=== PATIENT | female | born 1955 | race Caucasian/White ===

== ENCOUNTER 2017-03-06 12:10 | Inpatient (IN) ==
--- NOTE | 2017-03-05 22:16 | Discharge Summary ---
<MendezsantinoMitali laneYenifer L - Last Filed: 03/05/17 22:10> Date of Encounter: 03/05/17 - Discharge Diagnosis (1) Arthritis of knee, right Priority: Primary Status: Acute (2) HTN (hypertension) Priority: Secondary Status: Chronic Qualifiers: Hypertension type: essential hypertension Qualified Code(s): I10 - Essential (primary) hypertension (3) Latex allergy Priority: Secondary Status: Chronic - Discharge Medications Home Medications: Albuterol Sulfate [Proair Respiclick] 2 puff IH PRN PRN 08/18/16 [History] Budesonide/Formoterol 160/4.5 [Symbicort 160/4.5] 2 puff IH BIDR 08/18/16 [ History] Hydrochlorothiazide 25 mg PO DAILY 08/18/16 [History] Pantoprazole Sodium [Protonix] 40 mg PO DAILY 08/18/16 [History] Duloxetine [Cymbalta] 30 mg PO DAILY 10/21/16 [History] Enoxaparin [Lovenox] 30 mg SQ Q12HR #20 syr 03/05/17 [Rx] OxyCODONE Immed Rel [Roxicodone 5 MG] 5 - 10 mg PO Q6HR PRN #40 tablet 03/05/17 [Rx] Buspirone HCl [Buspar] 5 mg PO TID PRN 03/06/17 [History] Ipratropium/Albuterol Neb [Duoneb] 3 ml IH Q6H PRN 03/06/17 [History] Linaclotide [Linzess] 145 mcg PO DAILY PRN 03/06/17 [History] Sucralfate [Carafate] 1 gm PO BID 03/06/17 [History] Allergies/Adverse Reactions: Allergies acetaminophen Adverse Reaction (Verified 10/21/16 07:15) Anaphylaxis aspirin [ASA] Adverse Reaction (Verified 10/21/16 07:15) Hives azithromycin [From Zithromax] Adverse Reaction (Verified 10/21/16 07:15) Rash codeine Adverse Reaction (Verified 10/21/16 07:15) Vomiting egg Adverse Reaction (Verified 10/21/16 07:15) Hives hydrocodone Adverse Reaction (Verified 10/21/16 07:15) Nausea latex Adverse Reaction (Verified 03/06/17 13:27) SWELLING TESTED NEGATIVE levofloxacin Adverse Reaction (Verified 10/21/16 07:15) Anaphylaxis Penicillins [PCN] Adverse Reaction (Verified 10/21/16 07:15) Fainting Sulfa (Sulfonamide Antibiotics) Adverse Reaction (Verified 10/21/16 07:15) Rash Primary care physician: Erik Rosales CNP - Patient Status Disposition: Home, Self-Care Condition: Good - Discharge Instructions Follow Up With: Rafa Valverde MD [Partnered Physician] - 04/04/17 10:20 am Yenifer Hill PAC [Physician Computer Applications Engineer] - 03/16/17 11:45 am Erik Rosales CNP [Primary Care Provider] - - Hospital Course Hospital course: Ms. Paul is a 61 year old female - Time Spent with Patient Total time spent providing and/or coordinating discharge services: <Rafa Valverde - Last Filed: 03/09/17 07:59> Date of Encounter: 03/09/17 Time of Encounter: 07:58 - Discharge Diagnosis (1) Arthritis of knee, right Priority: Primary Status: Acute (2) HTN (hypertension) Priority: Secondary Status: Chronic Qualifiers: Hypertension type: essential hypertension Qualified Code(s): I10 - Essential (primary) hypertension (3) Latex allergy Priority: Secondary Status: Chronic (4) Vasovagal episode Priority: Primary Status: Acute Primary care physician: Erik Rosales CNP - Patient Status Functional capacity at discharge: uses cane/walker Overall status at discharge: patient is progressing back to baseline - Hospital Course Hospital course: Ms. Paul is a 61 year old female The patient had an uneventful postoperative course except for a vasovagal episode evening postop day 2. She responded with appropriate treatment.. They received antibiotics and physical therapy and were discharged in stable condition. There will follow-up in the office in 2 weeks. Aspirin DVT prophylaxis - Time Spent with Patient Total time spent providing and/or coordinating discharge services:
--- NOTE | 2017-03-06 12:26 | History & Physical Report ---
Date of Encounter: 03/06/17 Time of Encounter: 12:25 24 Hour HP Update - Instructions Instructions: If the History and Physical is less than 30 days old and was completed prior to A.M. admission and or procedure and has NOT been updated on calendar day of procedure please complete this update prior to performing procedure. - Update Patient reports changes in Medical Condition: No Changes in examination, assessment, or condition: No Changes in Medication: No Preop tests/diagnostics Reviewed: Yes Surgery Remains Indicated: Yes Consent for Planned Operative Procedure(s) Verified: Yes - Pre-Operative Checklist Preoperative Checklist Indicated: No Prophylactic Antibiotic Ordered: Yes Is VTE Prophylaxis Indicated?: Yes
[2017-03-06] MEDS ORDERED: Clindamycin 900 MG/50 ML 900 MG/50 ML IV.SOLN IVPB ONE (12:41)
[2017-03-06] MEDS ORDERED: Albuterol 2.5 MG/3 ML NEBULIZER IH ONE (12:41)
[2017-03-06] MEDS ORDERED: Ringers Solution, Lactated 1,000 ML IVC SCH ×2 (12:45→17:12)
[2017-03-06] MEDS ORDERED: Famotidine 20 MG/2 ML VIAL IVP ONE (13:30)
[2017-03-06] MEDS ORDERED: Gabapentin 300 MG CAPSULE PO ONE (13:31)
--- NOTE | 2017-03-06 13:33 | Anesthesia Evaluation PreOp ---
Date of Encounter: 03/06/17 Time of Encounter: 13:30 - Past History Planned Operation: Rt TKA Cardiac History: HTN Pulmonary History: Asthma KNOT CUTTER History: Other (Fibromyalgia) Other Medical History: GERD, Other (IBS, Lupus) Anesthesia History: No Prior Anesthetic Complications : No Alcohol Use: none Drug use: none Medications and Allergies Albuterol Sulfate [Proair Respiclick] 90 mcg IH PRN PRN 08/18/16 [History] Budesonide/Formoterol 160/4.5 [Symbicort 160/4.5] 1 puff IH BIDR 08/18/16 [ History] Gabapentin [Neurontin] 300 mg PO TID #30 capsule 08/18/16 [Rx] Hydrochlorothiazide 25 mg PO DAILY 08/18/16 [History] L.acidoph,Paracasei, B.lactis [Probiotic] 1 each PO DAILY 08/18/16 [History] Pantoprazole Sodium [Protonix] 40 mg PO BID 08/18/16 [History] Ranitidine HCl [Zantac] 150 mg PO BID 08/18/16 [History] Duloxetine [Cymbalta] 30 mg PO Q48H 10/21/16 [History] Enoxaparin [Lovenox] 30 mg SQ Q12HR #20 syr 03/05/17 [Rx] OxyCODONE Immed Rel [Roxicodone 5 MG] 5 - 10 mg PO Q6HR PRN #40 tablet 03/05/17 [Rx] Allergies acetaminophen Adverse Reaction (Verified 10/21/16 07:15) Anaphylaxis aspirin [ASA] Adverse Reaction (Verified 10/21/16 07:15) Hives azithromycin [From Zithromax] Adverse Reaction (Verified 10/21/16 07:15) Rash codeine Adverse Reaction (Verified 10/21/16 07:15) Vomiting egg Adverse Reaction (Verified 10/21/16 07:15) Hives hydrocodone Adverse Reaction (Verified 10/21/16 07:15) Nausea latex Adverse Reaction (Verified 03/06/17 13:27) SWELLING TESTED NEGATIVE levofloxacin Adverse Reaction (Verified 10/21/16 07:15) Anaphylaxis Penicillins [PCN] Adverse Reaction (Verified 10/21/16 07:15) Fainting Sulfa (Sulfonamide Antibiotics) Adverse Reaction (Verified 10/21/16 07:15) Rash - Meds/Allergy Pre-op Review Medications Reviewed: Yes Allergies Reviewed: Yes Beta Blockers on Current Med List: No Anesthesia Results - Labs Laboratory Tests 10/21/16 02/20/17 02/20/17 07:27 11:07 11:07 Hgb 14.0 POC Hgb 13.0 Plt Count 233 Sodium 139 Potassium 3.6 BUN 13 Creatinine 0.94 - Imaging EKG: report reviewed (SR) Anesthesia Exam O2 Sat Height 1.7 m Height 1.7 m Height 1.7 m Weight 78.925 kg Weight 78.925 kg Weight 78.925 kg O2 Sat by Pulse Oximetry 98 O2 Sat by Pulse Oximetry 98 Vital Signs Temp Pulse Resp BP Pulse Ox 98.0 F 76 18 136/70 98 03/06/17 12:31 03/06/17 12:31 03/06/17 12:31 03/06/17 12:31 03/06/17 12:31 Height: 5'7 Weight: 174 lbs NPO (# of Hours): MN Pain Scale: 0 - HEENT Pupil (Motor): Pupils equal, EOMI Mallampati: II Denture Type: Upper: Complete Oral Opening: Less than or equal to 3 - KNOT CUTTER LOC: Oriented KNOT CUTTER Motor: Normal RUE, Normal LUE, Normal RLE, Normal LLE, Normal Face KNOT CUTTER Sensory: Normal: RUE, LUE, LLE, Face, Deficit: RLE (Patellar paresthesia) - Cardiac Rhythm: Regular Murmur: None JVD: No Carotid Bruit: No - Pulmonary Breath Sounds: bilateral Clear Respiratory Effort: Symmetrical Anesthesia Assess/Plan ASA Score: 2 Modified Nini Scale for Level of Consciousness: Cooperative, oriented, and tranquil Anesthetic Plan: General, Regional Monitoring Plan: Standard Monitors Recovery Plan: PACU (Discussed GA and RA, agrees to proceed)
[2017-03-06] MEDS ORDERED: *HR* Rocuronium Bromide 50 MG/5 ML VIAL ONE (13:59)
[2017-03-06] MEDS ORDERED: *HR* FentaNYL (PF) 100 MCG/2 ML VIAL ONE (13:59)
[2017-03-06] MEDS ORDERED: Ondansetron 4 MG/2 ML VIAL ONE (13:59)
[2017-03-06] MEDS ORDERED: Lidocaine -MPF 2% 2 ML VIAL ONE (13:59)
[2017-03-06] MEDS ORDERED: *HR* Propofol 200 MG/20 ML VIAL IVP ONE (14:00)
[2017-03-06] MEDS ORDERED: *HR* Midazolam HCl 2 MG/2 ML VIAL ONE (14:00)
[2017-03-06] MEDS ORDERED: ROPIVACAINE HCL/PF 0.5% 30 ML VIAL ONE (14:20)
--- NOTE | 2017-03-06 14:37 | Anesthesia Procedures ---
Date of Encounter: 03/06/17 Time of Encounter: 14:35 Procedures: Anesthesia - Nerve Block Procedure Date: 03/06/17 Time: 14:35 Allergies/Adv Reactions: acetaminophen Adverse Reaction (Verified 10/21/16 07:15) Anaphylaxis aspirin [ASA] Adverse Reaction (Verified 10/21/16 07:15) Hives azithromycin [From Zithromax] Adverse Reaction (Verified 10/21/16 07:15) Rash codeine Adverse Reaction (Verified 10/21/16 07:15) Vomiting egg Adverse Reaction (Verified 10/21/16 07:15) Hives hydrocodone Adverse Reaction (Verified 10/21/16 07:15) Nausea latex Adverse Reaction (Verified 03/06/17 13:27) SWELLING levofloxacin Adverse Reaction (Verified 10/21/16 07:15) Anaphylaxis Penicillins [PCN] Adverse Reaction (Verified 10/21/16 07:15) Fainting Sulfa (Sulfonamide Antibiotics) Adverse Reaction (Verified 10/21/16 07:15) Rash Pre-op Diagnosis: oa right knee Surgical Procedure: right tka Checklist: Correct Patient Identifier, Correct procedure, History checked Correct side: Right Blood Thinner: No Monitor Applied: EKG, BP, Pulse Oximetry Supplemental Oxygen via Nasal Cannula (L/min): 2 Sedation: Versed (mg): 2 Indication: Post Op Analgesia Pre-op Neuro Deficits: No Block Type: Femoral, Other (iPACK) Catheter placed: No Sterile Technique: Yes Ultrasound used: Yes Anatomy identified: Yes Visual spread of Local: Yes Neuro Stimulation: Yes Nerve Stimulator Range: 0.2 - 0.4 mA Blood on Needle Aspiration: No Smooth Injection of Local: Yes Pain with Injection of Local: No Prep: Chlorhexadine Needle: 22 x 50 mm Stimuplex (femoral), 21 x 100 mm Stimuplex (iPACK) Local: 0.25% Bupivicaine w/Clonidine 20 mcg/cc (iPACK 20 ml), Ropivacaine (0.5% 30cc femoral) Volume (cc): 50 Number of Attempts: 1 Complications: None/effective block
[2017-03-06] MEDS ORDERED: Dexamethasone 4 MG/ML VIAL ONE (15:04)
[2017-03-06] MEDS ORDERED: Albuterol 2.5 MG/3 ML NEBULIZER IH PRN (15:08)
[2017-03-06] MEDS ORDERED: *HR* Promethazine 25 MG/ML VIAL IVP PRN (15:08)
[2017-03-06] MEDS ORDERED: *HR* HYDROmorphone (PF) 1 MG/ML SYRINGE IVP PRN (15:08)
[2017-03-06] MEDS ORDERED: EPHEDrine 50 MG/ML VIAL ONE (15:19)
[2017-03-06 16:55] LABS: Hematocrit 37.6 % (35.3-44.9); Hemoglobin 12.7 g/dL (11.5-15.4)
--- NOTE | 2017-03-06 17:08 | Anesthesia Evaluation Post Op ---
Date of Encounter: 03/06/17 Time of Encounter: 17:10 - Vital Signs Vital Signs: Vital Signs/O2 Sat/Glucose, Most Current Temp Pulse Resp BP Pulse Ox 03/06/17 16:58 97.8 F 91 18 133/64 97 03/06/17 16:48 97.6 F 92 16 124/84 98 03/06/17 16:38 97 16 137/79 97 03/06/17 16:28 107 12 125/86 99 03/06/17 16:18 97.0 F L 84 12 125/64 97 03/06/17 14:16 88 138/87 100 - Lungs Lungs: Clear Ascult./Percussion - Airway Airway: Non-obstructed - Cardiovascular Regular Rate - Mental Status Mental Status: Alert & Oriented, Answers Appropriately - Pain Pain Scale: 0 - Nausea Vomiting Nausea Vomiting: Not Present - Hydration Hydration: Ice chips - Discharge PostOp Status: Transfer Patient to floor
--- NOTE | 2017-03-06 17:08 | Anesthesia Evaluation Post Op ---
Date of Encounter: 03/06/17 Time of Encounter: 17:05 - Vital Signs Vital Signs: Vital Signs/O2 Sat/Glucose, Most Current Temp Pulse Resp BP Pulse Ox 03/06/17 16:58 97.8 F 91 18 133/64 97 03/06/17 16:48 97.6 F 92 16 124/84 98 03/06/17 16:38 97 16 137/79 97 03/06/17 16:28 107 12 125/86 99 03/06/17 16:18 97.0 F L 84 12 125/64 97 03/06/17 14:16 88 138/87 100 - Lungs Lungs: Clear Ascult./Percussion - Airway Airway: Non-obstructed - Cardiovascular Regular Rate - Mental Status Mental Status: Alert & Oriented, Answers Appropriately - Pain Pain Scale: 0 - Nausea Vomiting Nausea Vomiting: Not Present - Hydration Hydration: Ice chips - Discharge PostOp Status: Transfer Patient to floor
[2017-03-06] MEDS ORDERED: Temazepam 15 MG CAPSULE PO PRN (17:12)
[2017-03-06] MEDS ORDERED: Ondansetron 4 MG/2 ML VIAL IVP PRN (17:12)
[2017-03-06] MEDS ORDERED: Ipratropium/Albuterol Neb 3 ML IH PRN (17:12)
[2017-03-06] MEDS ORDERED: Naloxone 0.4 MG/ML INJ IVP PRN (17:12)
[2017-03-06] MEDS ORDERED: *HR* OxyCODONE Immed Rel 5 MG TABLET PO PRN (17:12)
[2017-03-06] MEDS ORDERED: Acetaminophen 325 MG TABLET PO PRN ×2 (17:12→17:29)
[2017-03-06] MEDS ORDERED: Sennosides 8.6 MG TABLET PO PRN (17:12)
[2017-03-06] MEDS ORDERED: MOM Conc 10 ML UD.LIQ PO PRN (17:12)
[2017-03-06] MEDS ORDERED: (Linaclotide [Linzess] 145 MCG) PO PRN (17:12)
[2017-03-06] MEDS ORDERED: ceFAZolin 2,000 MG in D5% in Water 100 ML IVPB SCH (17:12)
[2017-03-06] MEDS: *HR* Enoxaparin 30 MG/0.3 ML SYRINGE SQ SCH (17:47)
[2017-03-06] MEDS: *HR* HYDROmorphone (PF) 1 MG/ML SYRINGE IVP PRN (17:48)
[2017-03-06] MEDS ORDERED: *HR* Enoxaparin 30 MG/0.3 ML SYRINGE SQ SCH (18:00)
[2017-03-06] MEDS: Budesonide/Formoterol 160/4.5 MDI IH SCH (21:10)
[2017-03-06] MEDS: *HR* OxyCODONE Immed Rel 5 MG TABLET PO PRN (21:41)
[2017-03-06] MEDS: Sucralfate 1 GM TABLET PO SCH (21:41)
[2017-03-06] MEDS: Clindamycin 900 MG/50 ML 900 MG/50 ML IV.SOLN IVPB SCH (23:50)
[2017-03-07] MEDS: *HR* OxyCODONE Immed Rel 5 MG TABLET PO PRN ×4 (05:18→17:56)
[2017-03-07] MEDS: *HR* Enoxaparin 30 MG/0.3 ML SYRINGE SQ SCH ×2 (05:18→17:57)
[2017-03-07 05:36] LABS: Hematocrit 37.4 % (35.3-44.9); Hemoglobin 12.1 g/dL (11.5-15.4)
[2017-03-07 05:51] LABS: BUN/Creatinine Ratio 16 (6-26); Blood Urea Nitrogen 14 mg/dL (7-20); Calcium 8.8 mg/dL (8.6-10.8); Carbon Dioxide 25 mEq/L (19-29); Chloride 102 mEq/L (98-109); Glucose 174 mg/dL (70-99); Osmolality,Calculated 291 (280-300); Potassium 3.5 mEq/L (3.5-4.5); Sodium 138 mEq/L (136-145); eGFR For African Americans > 60 (> 60); eGFR For Non-African Americans > 60 (> 60)
[2017-03-07] MEDS: Clindamycin 900 MG/50 ML 900 MG/50 ML IV.SOLN IVPB SCH (06:25)
--- NOTE | 2017-03-07 06:29 | Orthopedics Progress Note ---
Date of Encounter: 03/07/17 Time of Encounter: 06:29 - Assessment and Plan (1) Arthritis of knee, right Current Visit: Yes Status: Acute (2) HTN (hypertension) Current Visit: Yes Status: Chronic Qualifiers: Hypertension type: essential hypertension Qualified Code(s): I10 - Essential (primary) hypertension (3) Latex allergy Current Visit: Yes Status: Chronic Subjective Interval history: Patient was seen this morning doing well without complaints. Afebrile vital signs stable. Operative extremity: Neurovascularly intact Dressing clean dry and intact Calves nontender Assessment and plan: Continue with postoperative care Hematocrit 37 Objective Vital signs: Vital Signs Temp Pulse Resp BP Pulse Ox 03/07/17 04:33 98.0 F 85 18 103/64 98 03/06/17 23:56 97.8 F 91 17 99/61 97 03/06/17 21:11 16 99 03/06/17 20:30 97.9 F 95 16 120/73 100 03/06/17 19:29 97.7 F 99 14 115/70 100 03/06/17 18:26 89 14 124/75 99 03/06/17 17:56 97.4 F L 98 15 126/76 93 03/06/17 17:15 97.3 F L 85 14 125/78 97 03/06/17 16:58 97.8 F 91 18 133/64 97 03/06/17 16:48 97.6 F 92 16 124/84 98 03/06/17 16:38 97 16 137/79 97 03/06/17 16:28 107 12 125/86 99 03/06/17 16:18 97.0 F L 84 12 125/64 97 03/06/17 14:16 88 138/87 100 03/06/17 12:56 98.0 F 76 18 136/70 98 03/06/17 12:31 98.0 F 76 18 136/70 98 Intake and Output 03/06/17 03/06/17 03/07/17 15:59 23:59 07:59 Intake Total 50 / 50 100 / 100 50 / 50 Output Total 200 / 200 500 / 500 1050 / 1050 Balance -150 / -150 -400 / -400 -1000 / -1000 Intake: IV Fluids 50 / 50 50 / 50 Cleocin 900 MG/50 ML 900 50 / 50 50 / 50 mg In 50 ml @ 50 mls/hr IVPB Q8HR LANNY Rx#: [id number] Oral 100 / 100 Output: Urine 0 / 0 500 / 500 1050 / 1050 Estimated Blood Loss 200 / 200 Other: Meal Dinner Percent of Meal Consumed 5% # Voids 1 Weight 78.925 kg - Labs CBC & BMP: 03/07/17 04:52 03/07/17 04:52 Labs: Abnormal lab results Glucose 174 mg/dL (70-99) H 03/07/17 04:52 - VTE Documentation of Mechanical Device: Venous foot pump, device Consult Discharge Plan - Plan Referrals: Erik Rosales, NATIONAL SALES REPRESENTATIVE [Primary Care Provider] -
[2017-03-07] MEDS ORDERED: *HR* OxyCODONE Immed Rel 5 MG TABLET PO PRN (06:50)
[2017-03-07] MEDS: Sucralfate 1 GM TABLET PO SCH ×2 (07:41→19:55)
[2017-03-07] MEDS: hydroCHLOROthiazide 25 MG TABLET PO SCH (07:52)
[2017-03-07] MEDS ORDERED: Clindamycin 900 MG/50 ML 900 MG/50 ML IV.SOLN IVPB SCH (08:00)
[2017-03-07] MEDS: Budesonide/Formoterol 160/4.5 MDI IH SCH ×2 (11:28→20:55)
--- NOTE | 2017-03-07 11:58 | Orthopedic Operative Note ---
Date of procedure: 03/06/17 Pre-op diagnosis: right knee arthritis Post-op diagnosis: same Procedure: Procedure: right Total knee replacement Estimated blood loss: 200 cc Hardware: Arthrex Femur: 5 Tibia: 3 PS insert: 8 Patella:34 Exam Under anesthesia: full flexion full extension no instability Procedural Notes:grade 3 arthritic change medial compartment, patellofemoral joint Operative procedure: The patient was brought to the operating room and placed on the operating room table. After general anesthesia was administered the operative knee was examined. Findings were noted in the exam under anesthesia. The operative extremity was prepped and draped in sterile surgical fashion. The patient received IV antibiotics prior to skin incision. A standard midline incision was made centered over the patella. The incision was made through the skin and subcutaneous tissue. A medial parapatellar tendon approach was performed. Care was taken to preserve tissue along the medial aspect of the patella. And to protect the patella tendon. The deep MCL was released off the medial tibia. The infra patella fat pad was excised. Knee was brought into flexion. Patient noted to have grade 3 arthritic changes medial compartment and patellofemoral joint. The entry hole was made for the intramedullary femoral guide. The guide was seated in 6 degrees of valgus. Anterior cut was made followed by the distal cut. The ACL the PCL the medial and the lateral menisci were excised. The tibia was subluxed forward. The entry hole was made for the intramedullary tibial guide. Guide was seated to resect 2 mm off the more abnormal side. The knee was brought into flexion the distal femur was sized 5. The femoral guide was seated , the anterior cut was made followed by the posterior condylar cut, followed by the chamfer cuts. The finishing guide was seated the box cut was made and the lug holes were drilled. The tibia was sized 3, the tibial tray was seated and prepared with the large drill followed by the fin cutter. Trial reduction revealed full extension no varus valgus instability with the appropriate 8 PS Babita. The patella was everted and cut was made at the level of the insertion of the quadriceps and patella tendon. The patella was sized 34 the guide was seated and the lug holes are drilled. Trial reduction revealed excellent patella tracking. All trial components were removed all bony surfaces were irrigated. The tibia was cemented first followed by the femur. 8 PS Babita was seated and the knee was brought into full extension. The patella was cemented and held in place with the patellar holding clamp. After the cement had hardened, the knee sat for 2 minutes with a Betadine saline solution. The knee was then irrigated out with 2 L of pulse irrigation. The extensor mechanism was closed with #2 FiberWire suture and #2 PDS suture. The subcutaneous tissue was then irrigated and closed deep with #1 PDS suture superficially with 0 PDS suture and skin was closed with skin keon. The patient was then placed in a sterile dressing and a postoperative brace extubated and transferred to recovery room in stable condition. Anesthesia: GETFavian Surgeon: Rafa Valverde Condition: stable Disposition: PACU
[2017-03-07] MEDS: *HR* HYDROmorphone (PF) 1 MG/ML SYRINGE IVP PRN (19:55)
[2017-03-08] MEDS: *HR* HYDROmorphone (PF) 1 MG/ML SYRINGE IVP PRN ×2 (01:37→06:27)
[2017-03-08] MEDS: *HR* OxyCODONE Immed Rel 5 MG TABLET PO PRN ×4 (05:08→20:54)
[2017-03-08] MEDS: *HR* Enoxaparin 30 MG/0.3 ML SYRINGE SQ SCH ×2 (05:08→16:37)
[2017-03-08 06:07] LABS: Hematocrit 34.1 % (35.3-44.9); Hemoglobin 11.4 g/dL (11.5-15.4)
--- NOTE | 2017-03-08 06:49 | Orthopedics Progress Note ---
Date of Encounter: 03/08/17 Time of Encounter: 06:49 - Assessment and Plan (1) Arthritis of knee, right Current Visit: Yes Status: Acute (2) HTN (hypertension) Current Visit: Yes Status: Chronic Qualifiers: Hypertension type: essential hypertension Qualified Code(s): I10 - Essential (primary) hypertension (3) Latex allergy Current Visit: Yes Status: Chronic Subjective Interval history: Patient was seen this morning doing well without complaints. Afebrile vital signs stable. Operative extremity: Neurovascularly intact Dressing clean dry and intact Calves nontender Assessment and plan: Continue with postoperative care Hematocrit 34 Objective Vital signs: Vital Signs Temp Pulse Resp BP Pulse Ox 03/08/17 04:59 97 160/79 03/08/17 00:48 98.2 F 112 17 105/70 96 03/07/17 20:57 18 95 03/07/17 19:28 98.6 F 89 16 147/86 98 03/07/17 14:00 97.6 F 73 18 140/71 99 03/07/17 11:28 16 99 03/07/17 11:03 69 18 119/70 99 03/07/17 10:42 98.2 F 69 18 119/70 99 Intake and Output 03/07/17 03/07/17 03/08/17 15:59 23:59 07:59 Intake Total 2530 / 2530 200 / 200 Output Total 500 / 500 1500 / 1500 Balance 2029 / 2029 200 / 200 -1500 / -1500 Intake: IV Fluids 2049 / 2049 Lactated Ringers 1,000 ML 1000 / 1000 @ 75 mls/hr IVC .[id number] LANNY Rx#:[id number] Cleocin 900 MG/50 ML 900 50 / 50 mg In 50 ml @ 50 mls/hr IVPB Q8H LANNY Rx#: [id number] Oral 480 / 480 200 / 200 Output: Urine 500 / 500 1500 / 1500 Other: Meal Lunch Dinner Percent of Meal Consumed 50% 50% - Labs CBC & BMP: 03/08/17 05:49 03/07/17 04:52 Labs: Abnormal lab results Hgb 11.4 g/dL (11.5-15.4) L 03/08/17 05:49 Hct 34.1 % (35.3-44.9) L 03/08/17 05:49 Glucose 174 mg/dL (70-99) H 03/07/17 04:52 - VTE Documentation of Mechanical Device: Venous foot pump, device Consult Discharge Plan - Plan Referrals: Rafa Valverde MD [Partnered Physician] - 04/04/17 10:20 am Yenifer Hill PAC [Physician Rug Designer] - 03/16/17 11:45 am Erik Rosales CNP [Primary Care Provider] -
[2017-03-08 06:53] LABS: BUN/Creatinine Ratio 15 (6-26); Blood Urea Nitrogen 13 mg/dL (7-20); Calcium 8.7 mg/dL (8.6-10.8); Carbon Dioxide 26 mEq/L (19-29); Chloride 102 mEq/L (98-109); Glucose 130 mg/dL (70-99); Osmolality,Calculated 286 (280-300); Potassium 3.7 mEq/L (3.5-4.5); Sodium 137 mEq/L (136-145); eGFR For African Americans > 60 (> 60); eGFR For Non-African Americans > 60 (> 60)
[2017-03-08] MEDS: Sucralfate 1 GM TABLET PO SCH ×2 (08:00→20:53)
[2017-03-08] MEDS: Budesonide/Formoterol 160/4.5 MDI IH SCH ×2 (08:15→20:23)
[2017-03-08] MEDS: hydroCHLOROthiazide 25 MG TABLET PO SCH (09:12)
[2017-03-08] MEDS ORDERED: 0.9 % Sodium Chloride 1,000 ML ONE (22:52)
[2017-03-08] MEDS ORDERED: Metoclopramide 10 MG/2 ML VIAL IVP ONE (22:55)
[2017-03-08] MEDS ORDERED: 0.9 % Sodium Chloride 500 ML IVC ONE (23:02)
--- NOTE | 2017-03-08 23:10 | Event Note ---
Date of Encounter: 03/08/17 Time of Encounter: 22:45 RAPID RESPONSE DX=Acute vaso-vagal syncope/near syncope AMS; acute tox/metab encephalopathy- delirium Hypotension Postoperative right total knee arthroplasty Condition serious--->Unstable Prognosis guarded Bedrest Orthostatic vital signs Restrict/limit freq+amt narcotic analgesia and sedative PT+OT to assist in mobilization goals TX=IV NS O2 supplementation Strict I&Os;morales Telemetry;pulse oximetry+hemodynamic monitor Metabolic and acid-base deficits correction. Replete fluid and electrolyte deficits. Labs:CBC, CMP, TROPONIN, UA, MAG, VBG, PHOS, ION CALCIUM PROLACTIN, CPK, LACTATE, UDS, AMMONIA, TSH, CORTISOL Studies: EKG, CXR, CT head Plan of care discussed. All questions addressed. Orders written. Vital Signs Temp Pulse Resp BP Pulse Ox 03/08/17 22:40 12 98 03/08/17 20:23 14 99 03/08/17 20:00 99 03/08/17 19:54 98.7 F 90 16 164/82 99 03/08/17 16:10 98.2 F 80 16 157/81 98 03/08/17 12:18 98.5 F 79 16 159/77 96 03/08/17 08:15 16 95 03/08/17 06:49 98.3 F 97 16 162/78 95 03/08/17 04:59 97 160/79 03/08/17 00:48 98.2 F 112 17 105/70 96 Intake and Output 03/08/17 03/08/17 03/08/17 07:59 15:59 23:59 Output Total 1500 / 1500 1100 / 1100 Balance -1500 / -1500 -1100 / -1100 Output: Urine 1500 / 1500 1100 / 1100 Other: Meal Breakfast Percent of Meal Consumed 50% Short CBC 03/08/17 Range/Units 05:49 Hgb 11.4 L (11.5-15.4) g/dL Hct 34.1 L (35.3-44.9) % BMP 03/08/17 Range/Units 05:49 Sodium 137 (136-145) mEq/L Potassium 3.7 (3.5-4.5) mEq/L Chloride 102 (98-109) mEq/L Carbon Dioxide 26 (19-29) mEq/L BUN 13 (7-20) mg/dL Creatinine 0.86 (0.57-1.11) mg/dL Glucose 130 H (70-99) mg/dL Calcium 8.7 (8.6-10.8) mg/dL
[2017-03-08] MEDS ORDERED: Pantoprazole 80 MG in 0.9 % Sodium Chloride 50 ML IVPB STA (23:15)
[2017-03-08 23:47] LABS: Basophils % 0.2 %; Eosinophils # 0.1 K/mcL (0.0-0.6); Eosinophils % 1.2 %; Hematocrit 36.8 % (35.3-44.9); Hemoglobin 11.9 g/dL (11.5-15.4); Immature Granulocytes % 0.3 % (0-4); Lymphocytes # 1.4 K/mcL (0.6-4.6); Lymphocytes % 15.3 %; Mean Corpuscular HGB Conc 32.3 g/dL (31.6-35.5); Mean Corpuscular Hemoglobin 26.7 pg (28.0-33.3); Mean Corpuscular Volume 82.5 fL (83.0-100.0); Mean Platelet Volume 10.5 fL (9.4-12.4); Monocytes # 0.8 K/mcL (0.0-1.3); Neutrophils # 6.7 K/mcL (1.6-8.9); Platelet Count 155 K/mcL (140-400); Red Blood Count 4.46 M/mcL (3.82-4.97)
[2017-03-08 23:51] LABS: INR 1.2; Prothrombin Time 13.3 Seconds (9.4-12.1)
[2017-03-08] MEDS: 0.9 % Sodium Chloride 1,000 ML IVC SCH (23:55)
[2017-03-09 00:52] LABS: Hemoglobin A1C 5.3 %
[2017-03-09 01:18] LABS: VBG HCO3 30.4 mEq/L (21-27); VBG PH 7.4 pH Units (7.32-7.42)
[2017-03-09] MEDS: *HR* Enoxaparin 30 MG/0.3 ML SYRINGE SQ SCH (05:24)
[2017-03-09] MEDS: 0.9 % Sodium Chloride 1,000 ML IVC SCH (05:25)
[2017-03-09 07:27] VITALS: BP 151/74
--- NOTE | 2017-03-09 08:00 | Orthopedics Progress Note ---
Date of Encounter: 03/09/17 Time of Encounter: 07:59 - Assessment and Plan (1) Arthritis of knee, right Current Visit: Yes Status: Acute (2) HTN (hypertension) Current Visit: Yes Status: Chronic Qualifiers: Hypertension type: essential hypertension Qualified Code(s): I10 - Essential (primary) hypertension (3) Latex allergy Current Visit: Yes Status: Chronic (4) Vasovagal episode Current Visit: Yes Status: Acute Subjective Interval history: Patient was seen this morning doing well without complaints had a vasovagal episode overnight responded appropriately. Afebrile vital signs stable. Operative extremity: Neurovascularly intact Dressing clean dry and intact Calves nontender Assessment and plan: Continue with postoperative care Discharged today Objective Vital signs: Vital Signs Temp Pulse Resp BP Pulse Ox 03/09/17 07:26 98.1 F 86 14 151/74 97 03/09/17 05:11 98.4 F 86 15 153/83 100 03/08/17 23:00 98.7 F 107 20 159/88 98 03/08/17 22:45 98.7 F 107 20 159/88 98 03/08/17 22:40 12 98 03/08/17 20:23 14 99 03/08/17 20:00 99 03/08/17 19:54 98.7 F 90 16 164/82 99 03/08/17 16:10 98.2 F 80 16 157/81 98 03/08/17 12:18 98.5 F 79 16 159/77 96 03/08/17 08:15 16 95 Intake and Output 03/08/17 03/08/17 03/09/17 15:59 23:59 07:59 Intake Total 1000 / 1000 Output Total 1100 / 1100 1300 / 1300 Balance -1100 / -1100 -300 / -300 Intake: IV Fluids 1000 / 1000 0.9 % Sodium Chloride 1, 1000 / 1000 000 ML @ 125 mls/hr IVC . Q8H LANNY Rx#:[id number] Output: Urine 1100 / 1100 Catheter 1300 / 1300 Other: Meal Breakfast Percent of Meal Consumed 50% Blood Glucose* 140 - Labs CBC & BMP: 03/08/17 23:38 03/08/17 05:49 Labs: Abnormal lab results MCV 82.5 fL (83.0-100.0) L 03/08/17 23:38 MCH 26.7 pg (28.0-33.3) L 03/08/17 23:38 PT 13.3 Seconds (9.4-12.1) H 03/08/17 23:38 VBG pO2 165 mmHg (25-40) H 03/09/17 01:03 VBG HCO3 30.4 mEq/L (21-27) H 03/09/17 01:03 Glucose 130 mg/dL (70-99) H 03/08/17 05:49 POC Glucose 140 (58-89) H 03/08/17 22:56 - VTE Documentation of Mechanical Device: Venous foot pump, device Consult Discharge Plan - Plan Referrals: Rafa Valverde MD [Partnered Physician] - 04/04/17 10:20 am Yenifer Hill, PAC [Physician Teletypewriter Installer] - 03/16/17 11:45 am Erik Rosales CNP [Primary Care Provider] -
[2017-03-09] MEDS: hydroCHLOROthiazide 25 MG TABLET PO SCH (08:22)
[2017-03-09] MEDS: *HR* OxyCODONE Immed Rel 5 MG TABLET PO PRN (08:22)
[2017-03-09] MEDS: Sucralfate 1 GM TABLET PO SCH (08:22)
[2017-03-09] MEDS: Budesonide/Formoterol 160/4.5 MDI IH SCH (08:28)
[2017-03-09] MEDS ORDERED: Pantoprazole 40 MG VIAL IVP SCH (09:00)
[2017-03-09 09:08] LABS: Hematocrit 33.3 % (35.3-44.9); Hemoglobin 10.9 g/dL (11.5-15.4)
--- NOTE | 2017-03-10 17:42 | Electrocardiograph Report ---
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
== END 2017-03-09 10:52 | disposition home or self-care (01) | DRG 469 ==
LOC: SAMDAY 12:10 → 3NENU 17:12
PROVIDERS: ADMIT Orthopaedic Surgery; ATTEND Orthopaedic Surgery